=== PATIENT | male | born 1965 | race Caucasian/White ===

== ENCOUNTER 2018-04-21 17:55 | Emergency (ER) | payer OTHER ==
[2018-04-21] MEDS ORDERED: CEPHALEXIN 500 MG CAP PO ONE (18:31)
[2018-04-21] MEDS ORDERED: TDAP ADULT 0.5 ML INJ (BOOSTRIX) IM ONE (18:31)
--- NOTE | 2018-04-21 18:31 | EDPHY ---
H & P Time Seen by Provider: 04/21/18 18:16 HPI/ROS: CHIEF COMPLAINT: Splinter left thenar eminence HISTORY OF PRESENT ILLNESS: 52-year-old male in the ER via private vehicle. Patient states that he is staying at the [facility], he was removing object from the closet when a piece of the hotel's wood decorator consultant with splinter in entered his left thenar eminence. This occurred shortly prior to arrival. Unknown tetanus. PHYSICAL EXAM (Prior to examination, patient consented to physical exam, hands were washed and my usual and customary physical exam procedures followed) 1) GENERAL: Well-developed, well-nourished, alert and oriented. Appears to be in no acute distress. 2) HEAD: Normocephalic 3) HEENT: Pupils equal, round, reactive to light bilaterally. 4) LUNGS: Breathing comfortably. 5) MUSCULOSKELETAL: Soft compartments. Normal coloration. Opposition, abduction, abduction, flexion extension intact with no deficits to the left hand and some. No signs of infection. No erythema. 6) SKIN: Left hand: At the Thenar eminence patient has a through and through puncture wound with palpable wood foreign body 7) VASCULAR: pulses and cap refill present are brisk 8) NEUROLOGIC: Radial, ulnar, median nerve function intact with no deficits appreciated on exam Smoking Status: Never smoked Constitutional: Initial Vital Signs Temperature (C) 36.8 C 04/21/18 17:58 Heart Rate 75 04/21/18 17:58 Respiratory Rate 18 04/21/18 17:58 Blood Pressure 151/93 H 04/21/18 17:58 O2 Sat (%) 98 04/21/18 17:58 O2 Delivery Mode Room Air Allergies/Adverse Reactions: No Known Allergies Allergy (Unverified 04/21/18 18:39) Home Medications: Medication Instructions Recorded Cephalexin [Keflex] 500 mg PO TID 5 Days cap 04/21/18 MDM/Departure - MDM Procedures: Procedure: Foreign body removal left hand Indication: Foreign body left thenar eminence The patient's left hand was prepped draped normal sterile fashion, the puncture wounds were anesthetized 1% lidocaine with epinephrine. I was able to visualize the wood splinter removal with hemostats. There were 2 large splinter is a removed by myself. The area is then copiously irrigated by ER staff and re-examined by myself and there are no visible foreign bodies. There are no signs of infection. Procedure: Splint A Velcro thumb spica splint was applied by ER industrial manufacturing technician to relieve stress on the puncture wound site. After application of the splint I returned and re- examined the patient. The splint was adequately immobilizing the joint and distal to the splint the patient's circulation and sensation were intact. Patient shows no signs of compartment syndrome. Was given orthopedic precautions. Medications Given: Discontinued Medications Cephalexin HCl (Keflex) 500 mg PO EDNOW ONE PRN Reason: Protocol Stop: 04/21/18 18:32 Last Admin: 04/21/18 18:55 Dose: 500 mg Diphtheria/Tetanus/Acell Pertussis (Boostrix) 0.5 ml IM .ONCE ONE Stop: 04/21/18 18:32 Last Admin: 04/21/18 18:55 Dose: 0.5 ml ED Course/Re-evaluation: Patient was re-evaluated with serial exams. He has no musculoskeletal deficits. He has no signs of infection. Wound be allowed to heal via secondary intention. He is started on prophylactic antibiotics. Tetanus has been updated. Given usual customary wound precautions instructions. He feels comfortable being discharged. Care of patient under supervision of secondary supervising physician Dr Mead - Depart Disposition: Home, Routine, Self-Care Clinical Impression: Foreign body of left hand Qualifiers: Encounter type: initial encounter Qualified Code(s): S60.552A - Superficial foreign body of left hand, initial encounter Condition: Good Instructions: Soft Tissue Foreign Body (ED) Additional Instructions: Return to the ER if you develop redness, swelling, discharge, warmth to the wound, red streaks going up your arm, or any other symptoms that concern you. Prescriptions: Cephalexin [Keflex] 500 mg PO TID 5 Days cap Referrals: López Turcios MD [Medical Doctor] - 2-3 days, call for appt.
[2018-04-21 19:02] VITALS: BP 112/78
== END 2018-04-21 19:01 | disposition home or self-care (01) ==
DX: S60.552A Superficial foreign body of left hand, initial encounter (principal); Z23 Encounter for immunization; W45.8XXA Other foreign body or object entering through skin, initial encounter; Y92.59 Other trade areas as the place of occurrence of the external cause; Y93.89 Activity, other specified; Y99.8 Other external cause status